=== PATIENT | male | born 1970 | race Two or more races ===

== ENCOUNTER → 2016-08-16 | Day surgery (SDC) | payer OTHER ==
[~2016-08-16] VITALS: Ht 177.8 cm; Wt 138.0 kg
[~2016-08-16] MED LIST: ALLERGY10 MG PO; AUGMENTIN500 MG PO; CALCIUM 600 +1 EA12 PO; CLARITHROMYCIN500 MG PO; FISH OIL1000 MG PO; FLONASE 50 MCG/16 GM NOSE; HYZAAR 100-12.1 EACH PO; MEN'S MULTI-VI1 EACH PO; NORCO 5-325 TA1 EACH PO; OMEPRAZOLE20 MG PO; PHENERGAN-DM120 ML PO; PROVENTIL OR V6.7 GM INH; SYMBICORT 80-10.2 GM INH; ULTRAM50 MG PO; VITAMIN D-32000 UNI1 PO; VITAMIN D35000 UNI1 PO; ZYLOPRIM300 MG PO
--- NOTE | ~2016-08-16 | OR ---
PATIENT'S NAME: ERI PORTILLO [facility] AGE: 45 Y [address] ROOM: [place] [id number] LOCATION: [facility] [place] ADMIT DATE: 08/16/2016 OR/Procedure Report DISCHARGE DATE: FAMILY PHYSICIAN: Natalio Michel MD ATTENDING PHYSICIAN: Joe Ortega SURGEON: Joe Ortega MD BOOK SALESMAN: Radha Kahn PA-C. DATE OF PROCEDURE: 08/16/2016 PREOPERATIVE DIAGNOSIS: Incisional hernia in supraumbilical ventral location. POSTOPERATIVE DIAGNOSIS: Incisional hernia with associated umbilical fascial defect. PROCEDURES: Incisional herniorrhaphy with Ventralex ST medium 2.5 inch diameter hernia patch. ANESTHESIA: General with 20 mL of 0.5% Marcaine with epinephrine. ESTIMATED BLOOD LOSS: 50 mL. SPECIMEN: Hernia sac, not sent. INDICATION: The patient is a 45-year-old gentleman, who works in heavy lifting occupation, who has had a previous laparoscopic appendectomy and the trocar incision in the supraumbilical location. He has developed a discomfort in that location over the last year and a half. It was found to have an incisional hernia in the supraumbilical location. We discussed operative repair, utilization of mesh, and operative risk. DESCRIPTION OF PROCEDURE: After informed consent, the patient was taken to the operating room. After general endotracheal anesthesia, the patient's abdomen was prepped and draped into a sterile field. We had a time-out. We confirmed the patient's planned procedure. Administration of antibiotics. We then made an incision just above the umbilicus in the midline extending down to the right of the umbilicus. We dissected down to the subcutaneous tissue where we encountered a large hernia sac. It was from the soft tissue and cleared around down by the surface of the fascia defect about a 2 cm defect. We also noted with a small fascial band below a small on the none diagnosed umbilical hernia. We divided the fascia band to create one defect. We then selected a 2.[address] hernia patch, placed into the peritoneal cavity, placed 4-0 Prolene sutures in the each corner approximately a cm from the fascia edge. We then divided each quadrant with another through and through 0-Prolene to attach the mesh to the anterior abdominal wall. After completion, we took the attenuated fascia and closed it PATIENT'S NAME: ERI PORTILLO [facility] AGE: 45 Y [address] ROOM: [place] [id number] LOCATION: [facility] [place] ADMIT DATE: 08/16/2016 OR/Procedure Report DISCHARGE DATE: FAMILY PHYSICIAN: Natalio Michel MD ATTENDING PHYSICIAN: Joe Ortega with 0 Vicryl over the mesh in the midline to prevent communication with the subcutaneous tissue. The umbilicus was tacked down with 3-0 Vicryl. The subcutaneous tissue closed with 3-0 Vicryl and the skin closed with subcuticular 4-0 Vicryl. Steri-Strips and sterile dressings applied. The patient tolerated the procedure well and transferred to recovery in stable condition. JOE ORTEGA MD WTS/modl /[id number] d: 08/16/16 1216 t: 08/24/16 1142, OPERATIVE SUMMARY
[2016-08-16 06:46] LABS: BASOPHIL # 0.1 K/uL (0.0-0.2); BASOPHIL % 1.2 %; EOSINOPHIL # 0.3 K/uL (0.0-0.5); EOSINOPHIL % 3.3 %; HEMATOCRIT 42.7 % (37.0-53.0); HEMOGLOBIN 13.7 g/dL (12.0-17.0); IMMATURE GRANULOCYTE # 0.1 K/uL (0.0-0.3); IMMATURE GRANULOCYTE % 0.6 %; LYMPHOCYTE # 2.8 K/uL (0.8-4.0); LYMPHOCYTE % 27.8 %; MCH 29.3 pg (27.0-34.0); MCHC 32.1 gm/dL (32.0-36.5); MCV 91.4 fl (83.0-98.0); MONOCYTE # 0.9 K/uL (0.0-1.0); MONOCYTE % 8.7 %; MPV 10.8 fl (9.4-12.4); NEUTROPHIL # (ANC) 5.8 K/uL (1.4-9.0); NEUTROPHIL % 58.4 %; NRBC % 0 /100WBC (0-0.00); PLATELET COUNT 251 K/uL (150-450); RBC 4.67 M/uL (4.00-6.00); RDW-CV 13.5 % (11.9-14.6); WBC 9.9 K/uL (4.0-11.0)
[2016-08-16 06:58] LABS: ANION GAP 11.9 (10.0-19.0); BLOOD UREA NITROGEN 24 mg/dL (6-24); CALCIUM 9.3 mg/dL (8.5-10.5); CHLORIDE 108 mMol/L (96-110); CO2 27 mMol/L (22-32); CREATININE 0.9 mg/dL (0.6-1.3); ESTIMATED GFR (MDRD EQUATION) > 60; POTASSIUM 3.9 mMol/L (3.7-5.1); SODIUM 143 mMol/L (135-145)
== END | disposition disaster alternative care site (69) ==
LOC: GSDC 08-09 14:00 → GPOC 08-09 14:00 → GSDC 06:00
PROVIDERS: Surgery
PROC: 0WQF0ZZ Repair Abdominal Wall, Open Approach (ICD-10-PCS; principal; 2016-08-16)
DX: K43.2 Incisional hernia without obstruction or gangrene (principal); K42.9 Umbilical hernia without obstruction or gangrene; J44.9 Chronic obstructive pulmonary disease, unspecified; I10 Essential (primary) hypertension; K21.9 Gastro-esophageal reflux disease without esophagitis; G47.33 Obstructive sleep apnea (adult) (pediatric); E78.5 Hyperlipidemia, unspecified; R73.03 Prediabetes; E66.01 Morbid (severe) obesity due to excess calories; Z68.41 Body mass index [BMI] 40.0-44.9, adult; Z90.49 Acquired absence of other specified parts of digestive tract; Z79.899 Other long term (current) drug therapy
CPT/HCPCS: C1781; J0690; J1100; J2250; J2405; J7030